=== PATIENT | male | born 1960 | race Caucasian/White ===

== ENCOUNTER → 2024-08-14 14:29 | Outpatient (REF) | payer MEDICARE, BC, SELFPAY | LOC: HWRAD 14:29 | PROVIDERS: ATTENDING PHYSICIAN Internal Medicine | DX: E78.5 Hyperlipidemia, unspecified (principal) | CPT/HCPCS: 75571 ==

== ENCOUNTER → 2024-09-23 13:29 | Outpatient (REF) | payer MEDICARE, BC, SELFPAY | LOC: RCS 13:29 | PROVIDERS: ATTENDING PHYSICIAN Internal Medicine Cardiovascular Disease; FAMILY PHYSICIAN Internal Medicine | DX: R06.02 Shortness of breath (principal) | CPT/HCPCS: 93017; 93350 ==